=== PATIENT | male | born 1970 | race Caucasian/White ===

== ENCOUNTER 2020-03-28 12:25 | Emergency (ER) | payer OTHER ==
[~2020-03-28] VITALS: Ht 177.8 cm; Wt 175.0 kg
[2020-03-28 12:34] VITALS: BP 140/90
--- NOTE | 2020-03-28 13:09 | PHYS DOC ---
Past Medical History Past Medical History: Diabetes-Type II, Hypertension Past Surgical History: Other Additional Past Surgical Histo: R ANKLE FUSION, TOE DEBRIEDING Smoking Status: Never Smoker Alcohol Use: None General Adult EDM: Chief Complaint: TOE PROBLEM HPI: HPI: Patient is a 49 year old male who presents with right great toe wound that he has had for 3 months. Patient reports that he saw his senior c software engineer and got cultures taken on 619 and was started on Augmentin and Cipro. Patient reports that he got a call today from the senior c software engineer and said that the antibiotics that he was was prescribed were not adequate to treat the infection. Patient denies fever, body aches or pain. He is reporting some decreased sensation but reports that he has neuropathy and typically cannot feel anything below his ankle. He he has been wearing a boot on that foot as well to prevent him from bumping the toe. He has some sloughing noted to the tip of his right great toe. Review of Systems: Review of Systems: Integument: Denies rash. Right great toe ulceration. [] Heart Score: Risk Factors: Risk Factors: DM, Current or recent (<one month) smoker, HTN, HLP, family history of CAD, obesity. Risk Scores: Score 0 - 3: 2.5% MACE over next 6 weeks - Discharge Home Score 4 - 6: 20.3% MACE over next 6 weeks - Admit for Clinical Observation Score 7 - 10: 72.7% MACE over next 6 weeks - Early Invasive Strategies Physical Exam: PE: Constitutional: Well developed, well nourished, no acute distress, non-toxic appearance. [] HENT: Normocephalic, atraumatic, bilateral external ears normal, oropharynx moist, no oral exudates, nose normal. [] Eyes: PERRLA, EOMI, conjunctiva normal, no discharge. [] Neck: Normal range of motion, no tenderness, supple, no stridor. [] Cardiovascular:Heart rate regular rhythm, no murmur [] Lungs & Thorax: Bilateral breath sounds clear to auscultation [] Abdomen: Bowel sounds normal, soft, no tenderness, no masses, no pulsatile masses. [] Skin: Warm, dry, no erythema, no rash. Right great toe ulceration. [] Back: No tenderness, no CVA tenderness. [] Extremities: No tenderness, no cyanosis, no clubbing, ROM intact, no edema. [] Neurologic: Alert and oriented X 3, normal motor function, normal sensory function, no focal deficits noted. [] Psychologic: Affect normal, judgement normal, mood normal. [] Current Patient Data: Vital Signs: Vital Signs Date Time Temp Pulse Resp B/P (MAP) Pulse Ox O2 Delivery O2 Flow Rate FiO2 03/28/20 12:34 97.1 87 20 140/90 (107) 98 Room Air 97.1 EKG: EKG: [] Radiology/Procedures: Radiology/Procedures: [] Impression: [facility] [address] [place] [address] IMAGING REPORT Signed PATIENT: MYLES MEJIA ACCOUNT: [id number] : 1970 LOCATION: ER AGE: 49 SEX: M EXAM STATUS: REG ER ORD. PHYSICIAN: LUTHER ALVAREZ APRN REASON: right great toe wound,pt states has wound end of big toe, non healing 3 wks PROCEDURE: FOOT RIGHT 3V FOOT RIGHT 3V 03/28/2020 1:02 PM INDICATION: Right great toe wound. Nonhealing wound for 3 weeks. COMPARISON: None available. TECHNIQUE: 3 views of the right foot are provided. FINDINGS/ IMPRESSION: 1. Soft tissue ulcer is identified involving the distal phalanx of first digit of the right foot. Soft tissue swelling is noted without definite subcutaneous gas or radiopaque foreign density. Mild irregularity of the the tuft of the distal phalanx of the first digit without definite osseous erosion. If there is persistent concern for osteomyelitis, further evaluation with triple phase bone scan or MRI could be of benefit. Persistent No acute fracture. 2. There is cortical lucency involving the proximal central portion of the navicular bone which could represent a nutrient channel versus nondisplaced fracture. Correlate with point tenderness. 3. Midfoot osteoarthrosis is noted. 4. Calcaneal screw is identified. Posterior and plantar calcaneal enthesophytes are present. Electronically signed by: Stacia Mendoza MD (03/28/2020 1:42 PM) [facility] DICTATED and SIGNED BY: STACIA MENDOZA MD DATE: 03/28/20 1342 Course & Med Decision Making: Course & Med Decision Making Pertinent Labs and Imaging studies reviewed. (See chart for details) Patient has an ulceration to his right great toe it is circular and approximately the size of a nickel. Patient is alert and oriented and ambulatory with a steady gait. Vital signs stable. See HPI. Skin pink warm and dry. No associated cellulitis or swelling. No drainage is noted at this time. Patient has full range of motion of the toe. No deformity is noted. Pulse strong and present. Shantal SHINE spoke with senior c software engineer Dr. Cueto. The senior c software engineer and is over culture results on the toe and he has a staph infection. Susceptibility is Augmentin and clindamycin. Patient is already on Augmentin which has no resistance. Can also put the patient on clindamycin. [] Dragon Disclaimer: Dragon Disclaimer: This electronic medical record was generated, in whole or in part, using a voice recognition dictation system. Departure Departure Impression: Primary Impression: Wound, open, toe Qualified Codes: S91.109A - Unspecified open wound of unspecified toe(s) without damage to nail, initial encounter Disposition: HOME, SELF-CARE Condition: STABLE Referrals: UNKNOWN PCP NAME (PCP) Patient Instructions: Diabetes and Foot Care, Wound Care, [id number] Additional Instructions: Take Augmentin and the clindamycin. You no longer to take the ciprofloxacin. Follow-up with your senior c software engineer. Take antibiotics as prescribed and with food. Scripts Clindamycin Hcl (CLINDAMYCIN HCL) 300 Mg Capsule 1 CAP PO TID, #30 CAP Prov: LUTHER ALVAREZ APRN 03/28/20 Justicifation of Admission Dx: Justifications for Admission: Justification of Admission Dx: N/A LUTHER ALVAREZ APRN Mar 28, 2020 13:09
--- NOTE | 2020-03-28 13:45 | RAD ---
FOOT RIGHT 3V 03/28/2020 1:02 PM INDICATION: Right great toe wound. Nonhealing wound for 3 weeks. COMPARISON: None available. TECHNIQUE: 3 views of the right foot are provided. FINDINGS/ IMPRESSION: 1. Soft tissue ulcer is identified involving the distal phalanx of first digit of the right foot. Soft tissue swelling is noted without definite subcutaneous gas or radiopaque foreign density. Mild irregularity of the the tuft of the distal phalanx of the first digit without definite osseous erosion. If there is persistent concern for osteomyelitis, further evaluation with triple phase bone scan or MRI could be of benefit. Persistent No acute fracture. 2. There is cortical lucency involving the proximal central portion of the navicular bone which could represent a nutrient channel versus nondisplaced fracture. Correlate with point tenderness. 3. Midfoot osteoarthrosis is noted. 4. Calcaneal screw is identified. Posterior and plantar calcaneal enthesophytes are present. Electronically signed by: Juanis Beal MD (03/28/2020 1:42 PM) [facility]
[2020-03-28 13:51] LABS: BASO % 1 % (0-3); EOS # 0.1 x10^3/uL (0.0-0.7); EOS % 2 % (0-3); HEMATOCRIT 47.7 % (39.0-53.0); HEMOGLOBIN 16.2 g/dL (13.0-17.5); LYMPH # 2.1 x10^3/uL (1.0-4.8); LYMPH % 25 % (24-48); MEAN CORPUSCULAR HEMOGLOBIN 29 pg (25-35); MEAN CORPUSCULAR HGB CONC 34 g/dL (31-37); MEAN CORPUSCULAR VOLUME 86 fL (79-100); MONO # 0.7 x10^3/uL (0.0-1.1); MONO % 8 % (0-9); NEUT # 5.8 x10^3/uL (1.8-7.7); NEUT % 66 % (31-73); PLATELET COUNT 205 x10^3/uL (140-400); RED BLOOD COUNT 5.57 x10^6/uL (4.30-5.70); RED CELL DISTRIBUTION WIDTH 13.8 % (11.5-14.5); WHITE BLOOD COUNT 8.8 x10^3/uL (4.0-11.0)
[2020-03-28 13:59] LABS: PROTHROMBIN TIME PATIENT 12.1 SEC (11.7-14.0)
[2020-03-28 14:29] LABS: CALCIUM 8.4 mg/dL (8.5-10.1); CREATININE 0.9 mg/dL (0.7-1.3); GFR 89.7; POTASSIUM 3.9 mmol/L (3.5-5.1)
[2020-03-28 14:31] LABS: ALBUMIN 3.8 g/dL (3.4-5.0); ALBUMIN/GLOBULIN RATIO 1.2 (1.0-1.7); TOTAL BILIRUBIN 0.3 mg/dL (0.2-1.0); TOTAL PROTEIN 7.1 g/dL (6.4-8.2)
[2020-03-28] MEDS ORDERED: CLIN300C8 PO (15:28)
== END 2020-03-28 15:50 | disposition home or self-care (01) ==
LOC: ER 12:25
DX: L97.519 Non-pressure chronic ulcer of other part of right foot with unspecified severity (principal); E11.622 Type 2 diabetes mellitus with other skin ulcer; E11.40 Type 2 diabetes mellitus with diabetic neuropathy, unspecified; I10 Essential (primary) hypertension
CPT/HCPCS: 36415; 73630; 80053; 83605; 85025; 85610; 87040; 99284

== ENCOUNTER → 2020-04-06 | Outpatient (CLI) | payer OTHER ==
[2020-03-28 12:34] VITALS: BP 140/90
[~2020-04-06] MED LIST: ALPR1TAB6 PO; ASCO-151 PO; CIDE300T PO; CLIN300C8 PO; CYCL10TA2 PO; GABA300C18 PO; HYDR-2145 PO; LISI-130 PO; METF10007 PO; METO50TA6 PO; OMEP20TA63 PO; SIMV20TA18 PO; [UNRECOGNIZED DRUG - CODE] PO
== END | disposition home or self-care (01) ==
LOC: LAB 15:26
PROVIDERS: ATTEND Podiatrist Foot & Ankle Surgery
DX: Z11.59 Encounter for screening for other viral diseases (principal)
CPT/HCPCS: U0003-CS

== ENCOUNTER → 2020-04-13 | Day surgery (SDC) | payer OTHER ==
[~2020-04-13] VITALS: Ht 177.8 cm; Wt 138.3 kg
[~2020-04-13] MED LIST changes: +BUPIVACAINE MPF 0.5% 30 ML VIAL. ONE; +DEXAMETHASONE SOD PHOS 4 MG/ML VIAL ONE; +HYDROmorphone 2 MG/ML VIAL IV PRN; +INSULIN LISPRO 100 UNIT/ML 3ML VIAL for OP,RR ONLY. SQ PRN; +IV RINGERS,LACTATED 1000ML 1,000 ML IV SCH; +LIDOCAINE 1% PF 2 ML VIAL. ID PRN; +LIDOCAINE 1% PF 30 ML VIAL. ONE; +LIDOCAINE 2% PF 5 ML VIAL. ONE; +MEROPENEM 500 MG in IV NORMAL SALINE 50ML 50 ML IV PRN; +MORPHINE SULFATE 2 MG/ML VIAL. IV PRN; +ONDANSETRON PF 4 MG/2 ML VIAL. IV PRN; +PROCHLORPERAZINE 10 MG/2 ML VIAL. IV PRN; +PROPOFOL 10 MG/ML (20ML) VIAL. IV ONE; +VANCOMYCIN 1GM IVPB FOR OMNI 250 ML IV PRN; +fentaNYL PF VIAL 100 MCG/2 ML VIAL IV PRN
[2020-04-13 12:27] LABS: BASO # 0.1 x10^3/uL (0.0-0.2); BASO % 1 % (0-3); EOS # 0.2 x10^3/uL (0.0-0.7); EOS % 2 % (0-3); HEMATOCRIT 47.6 % (39.0-53.0); HEMOGLOBIN 16.6 g/dL (13.0-17.5); LYMPH # 2.6 x10^3/uL (1.0-4.8); LYMPH % 30 % (24-48); MEAN CORPUSCULAR HEMOGLOBIN 30 pg (25-35); MEAN CORPUSCULAR HGB CONC 35 g/dL (31-37); MEAN CORPUSCULAR VOLUME 85 fL (79-100); MONO # 0.7 x10^3/uL (0.0-1.1); MONO % 8 % (0-9); NEUT # 5.1 x10^3/uL (1.8-7.7); NEUT % 59 % (31-73); PLATELET COUNT 192 x10^3/uL (140-400); RED BLOOD COUNT 5.63 x10^6/uL (4.30-5.70); WHITE BLOOD COUNT 8.7 x10^3/uL (4.0-11.0)
--- NOTE | 2020-04-13 12:29 | SSS ---
ADMIT DATE: 04/13/2020 CHIEF COMPLAINT: Right first toe lesion. HISTORY OF PRESENT ILLNESS: The patient is a pleasant 49-year-old male who is overweight, has diabetes and hypertension. Basically, he has been battling a right first toe lesion for some time. He states he wants to go ahead and have the toe amputated, so he can get on back to work. He has been evaluated by Dr. Cueto. She is asked to assist do a preoperative evaluation and is currently being examined in the preoperative area. PAST MEDICAL HISTORY: Overweight, hypertension, diabetes. ALLERGIES: None. FAMILY HISTORY: Hypertension. SOCIAL HISTORY: He does not drink, smoke or take drugs. He runs a [employer]. MEDICATIONS: Reviewed, please refer to the [facility]. REVIEW OF SYSTEMS: GENERAL: No history of weight change, weakness or fevers. SKIN: No bruising, hair changes or rashes. EYES: No blurred, double or loss of vision. NOSE AND THROAT: No history of nosebleeds, hoarseness or sore throat. HEART: No history of palpitations, chest pain or shortness of breath on exertion. LUNGS: Denies cough, hemoptysis, wheezing or shortness of breath. GASTROINTESTINAL: Denies changes in appetite, nausea, vomiting, diarrhea or constipation. GENITOURINARY: No history of frequency, urgency, hesitancy or nocturia. NEUROLOGIC: Denies history of numbness, tingling, tremor or weakness. PSYCHIATRIC: No history of panic, anxiety or depression. ENDOCRINE: No history of heat or cold intolerance, polyuria or polydipsia. EXTREMITIES: Denies muscle weakness, joint pain, pain on walking or stiffness. PHYSICAL EXAMINATION: VITALS: Within normal limits and are stable. GENERAL: No apparent distress. Alert and oriented. HEENT: Normal cephalic atraumatic, external auditory canals are patent EYES: Extraocular muscles are intact, pupils are equally round and reactive to light and accommodation MUSCULOSKELETAL: Well developed, well nourished, good range of motion ENDOCRINE: No thyromegaly was palpated LYMPHATICS: No cervical chain or axillary nodes were noted HEMATOPOIETIC: No bruising NECK: Supple, no JVD, no thyromegaly was noted. LUNGS: Clear to auscultation in all lung echavarria without rhonchi or wheezing. HEART: RRR, S1, S2 present. Peripheral pulses intact, no obvious murmurs were noted. ABDOMEN: Soft, nontender. Positive bowel sounds no organomegaly, normal bowel sounds. EXTREMITIES: He has a right first toe lesion. NEUROLOGIC: Normal speech, normal tone. A & O x3, moves all extremities, no obvious focal deficits. PSYCHIATRIC: Normal affect, normal mood. Stable. SKIN: No ulcerations or rashes, good skin turgor, no jaundice. VASCULAR: Good capillary refill, neurovascular bundle appears to be intact. ASSESSMENT AND PLAN: Peripheral vascular disease, secondary diabetes with right diabetic toe lesion. He is scheduled to go to the OR today to have a right greater toe amputation. He is cleared for surgery. Postoperatively, he will need pain meds and wound care and home meds and if he needs to be admitted for some reason, please call, so we will assist with that. Thank you very much for allowing us to participate in the care of this nice gentleman. WILLIAMS CARREON DO DR: FRANCISCO/irma JOB#: [id number] / [id number]
[2020-04-13 12:49] LABS: ALBUMIN 3.7 g/dL (3.4-5.0); ALBUMIN/GLOBULIN RATIO 1.1 (1.0-1.7); CALCIUM 8.4 mg/dL (8.5-10.1); CREATININE 0.9 mg/dL (0.7-1.3); GFR 89.7; POTASSIUM 3.9 mmol/L (3.5-5.1); TOTAL BILIRUBIN 0.4 mg/dL (0.2-1.0); TOTAL PROTEIN 7.2 g/dL (6.4-8.2)
--- NOTE | 2020-04-13 14:40 | PDOC4 ---
OPERATIVE NOTE: Surgeon: Nory Pre operative diagnosis: chronic DM foot ulcer right hallux with hammer toe deformity Post operative diagnosis: Same Procedure: partial hallux amputation to right hallux to IPJ/distal phalanx resection right hallux Anesthesia: MAC with local Hemostasis: right ankle tourniquet at 250mmHg EBL 1mL specimen: distal phalanx right hallux Intraoperative findings: Note no proximal sinus tract. proximal phalanx white glistening cartilage with no signs of infection. no pustular drainage. no ischemic changes Patient tolerated both anesthesia and procedure well. Dictation number [id number] MARY ELLEN SCHROEDER DPM Apr 13, 2020 14:40
--- NOTE | 2020-04-13 14:51 | OP ---
DATE OF SURGERY: 04/13/2020 PREOPERATIVE DIAGNOSES: Chronic diabetic foot ulcer, right hallux, with underlying hammertoe deformity. POSTOPERATIVE DIAGNOSES: Chronic diabetic foot ulcer, right hallux, with underlying hammertoe deformity. PROCEDURE: Partial hallux amputation, right hallux to the interphalangeal joint/distal phalanx resection, right hallux. SURGEON: Jaswinder Cueto DPM ANESTHESIA: MAC with local. HEMOSTASIS: Right ankle tourniquet at 250 mmHg. ESTIMATED BLOOD LOSS: 1 mL. INDICATIONS: The patient is a 49-year-old male with diabetes and peripheral neuropathy, who complains of a chronic recurrent diabetic foot ulcer. He presented to the office with cellulitis and wound culture showed multidrug resistant organisms. Thus, he was started on antibiotics. The cellulitis improved; however, he had continued chronic ulceration. Discussed total contact casting followed by arthrodesis of the hallux hammertoe deformity to prevent future ulcerations versus an isolated distal phalanx resection to the interphalangeal joint. We discussed the risks, benefits and possible complications as well as the postoperative course with each procedure and the patient decided he would like to proceed with isolated distal phalanx resection of the right hallux. All questions were answered. No guarantees were made. DESCRIPTION OF PROCEDURE: The patient was transported to the operating room via a cart and placed on the operating table in the supine position. Final verification of the surgery, the patient and limb was performed. IV sedation was administered per Anesthesia. A timeout was taken to verify the patient, limb and surgery to be performed. A well-padded tourniquet was placed over the right ankle. A Griffin block was given to the right foot consisting of a 1:1 mixture of 1% lidocaine plain and 0.5% Marcaine plain. The right foot was prepped and draped in the usual aseptic manner. Esmarch bandage was used to exsanguinate the right foot and the right ankle tourniquet was inflated to 250 mmHg. Attention was directed to the hallux of the right foot. Two converging semielliptical incisions were made dorsal to plantar, ellipsing both the nail and the wound on the plantar distal aspect. The distal phalanx was then disarticulated at the interphalangeal joint and resected in toto. The toe was sent for pathology. The small vessels were cauterized. The wound was then copiously irrigated with sterile saline and the skin was reapproximated with 4-0 nylon. The wound was dressed with Betadine-soaked Adaptic gauze, 4 x 4, Kerlix bandage, Jt bandage. The tourniquet was deflated and good perfusion was noted to all digits of the right foot. The patient was transported to the PACU with vital signs stable and vascular status intact to the right foot. Postop instructions are in the chart. JASWINDER UCETO DPM DR: Ashley JOB#: [id number] / [id number]
[2020-04-13 15:03] VITALS: BP 172/81
--- NOTE | 2020-04-13 16:11 | RAD ---
EXAM: Right foot 3 views. HISTORY: First digit amputation COMPARISON: 03/28/2020 FINDINGS: Three views of the right foot are obtained. The first digit has been partially amputated through the interphalangeal joint. There are chronic healed fracture deformities of the fourth and fifth metatarsals. Tarsometatarsal osteoarthritis is moderate to severe. Hindfoot osteoarthritis is at least moderate. A screw arthrodesis the subtalar joint. This does not appear solidly fused. There are moderate plantar and posterior calcaneal spurs. IMPRESSION: 1. Amputation through the first interphalangeal joint. 2. Postprocedural and advanced degenerative changes as above. Electronically signed by: Curly Crow MD (04/13/2020 4:08 PM) [id number]
== END ==
LOC: SURG 11:37
PROVIDERS: ATTEND Podiatrist Foot & Ankle Surgery
DX: M20.41 Other hammer toe(s) (acquired), right foot (principal); E11.621 Type 2 diabetes mellitus with foot ulcer; I10 Essential (primary) hypertension; E78.00 Pure hypercholesterolemia, unspecified; E11.40 Type 2 diabetes mellitus with diabetic neuropathy, unspecified; K21.9 Gastro-esophageal reflux disease without esophagitis; F41.9 Anxiety disorder, unspecified; E66.01 Morbid (severe) obesity due to excess calories; Z68.42 Body mass index [BMI] 45.0-49.9, adult; Z79.84 Long term (current) use of oral hypoglycemic drugs
CPT/HCPCS: 28292; 36415; 73630; 80053; 82962; 85025; A7015; J2704; J3370; J3490; J1100